=== PATIENT | male | born 1945 | race Two or more races ===

== ENCOUNTER → 2019-12-05 | Outpatient (CLI) | payer OTHER ==
[~2019-12-05] MED LIST: CIPR500 PO; DOCU100 PO; FENO54 PO; FINA5 PO; FISH1000 PO; HYDR1TAB94 PO; Hair, Skin & N1 EACH PO; IBUP600 PO; LEVSOD150 PO; LEVSOD50; LISI20 PO; Lisinopril2.5 MG; METF500 PO; METF500C; NAPR500; Robaxin500 MG PO; SIMV10 PO; TAMS.4ER PO
[2019-12-06 14:29] LABS: Stool Occult Bld Immuno 1 Negative (NEGATIVE); Stool Occult Bld Immuno 2 Negative (NEGATIVE); Stool Occult Bld Immuno 3 Negative (NEGATIVE)
== END ==
LOC: LAB SHORT 10:00 → LAB EV 10:00 → LAB SHORT 12-06 10:59
PROVIDERS: Physician Assistant
DX: D64.9 Anemia, unspecified (principal)
CPT/HCPCS: 82274

== ENCOUNTER 2021-07-11 06:30 | Day surgery (SDC) | payer OTHER ==
[~2021-07-11] VITALS: Ht 167.6 cm; Wt 71.9 kg
--- NOTE | 2021-07-11 07:24 | NUR ---
Ambulatory in Day [facility] warming gown applied. Patient states colon prep results clear. History, Chart, Medications and Allergies reviewed before start of procedure.Lungs clear T/O to Auscultation. Patient confirms NPO status and agrees with scheduled surgery. Pre-Op teaching done. Pt verbalizes understanding. Patient States Post-Procedure ride home has been arranged.
--- NOTE | 2021-07-11 08:07 | NUR ---
07/11/21 0807 Lenka Regalado History, Chart, Medications and Allergies reviewed before start of procedure. Patient confirms NPO status and agrees with scheduled surgery. 3-LEAD EKG REVIEWED WITH PHYSICIAN PRIOR TO START OF PROCEDURE. MONITOR INTACT WITH CONTINUOUS PULSE OXIMETRY AND INTERMITTENT BP. PATIENT DETERMINED TO BE ASA APPROPRIATE FOR PROPOFOL SEDATION PRIOR TO START OF PROCEDURE BY DR. JAMESON.
--- NOTE | 2021-07-11 08:54 | NUR ---
Patient up to Ambulate independently. Gait steady. Discharge instructions reviewed with patient. Patient verbalizes understanding. Copy given to patient to take home. Patient States Post-Procedure ride home has been arranged with Tammy. Discharged via wheelchair to private car for ride home.
== END 2021-07-11 09:01 | disposition home or self-care (01) ==
LOC: ORSCMMR 06:30 → ORD 08:00 → ORSCMMR 08:00
PROVIDERS: Surgery
PROC: 0DBL8ZX Excision of Transverse Colon, Via Natural or Artificial Opening Endoscopic, Diagnostic (ICD-10-PCS; principal; 2021-07-11 08:00)
DX: Z12.11 Encounter for screening for malignant neoplasm of colon (principal); D12.3 Benign neoplasm of transverse colon; G30.9 Alzheimer's disease, unspecified; E11.9 Type 2 diabetes mellitus without complications; E78.5 Hyperlipidemia, unspecified; I10 Essential (primary) hypertension; E03.9 Hypothyroidism, unspecified; Z87.891 Personal history of nicotine dependence; I73.9 Peripheral vascular disease, unspecified; Z79.84 Long term (current) use of oral hypoglycemic drugs; Z79.899 Other long term (current) drug therapy
CPT/HCPCS: 82947; 88305; J2704; J7120